=== PATIENT | male | born 1955 | race Caucasian/White ===

== ENCOUNTER 2020-06-12 09:00 | Outpatient (CLI) | payer MEDICARE, SELFPAY ==
--- NOTE | ~2020-06-12 | MR_ITS ---
EXAMINATION: MR lumbar spine wo con DATE: 06/12/2020 09:52 INDICATION: Lumbar radiculopathy. TECHNIQUE: Magnetic resonance imaging (MRI) of the lumbar spine was performed without intravenous con trast. Sequences included sagittal T2-weighted FSE, sagittal T2-weighted FS FSE, sagittal T1-weighted FSE, and axial T2-weighted FSE. COMPARISON: Lumbar spine MRI 01/03/2017 FINDINGS: There is 9 degrees levocurvature of lumbar spine. There is 3 mm retrolisthesis of L3 on L4 and 3 mm anterolisthesis of L4 on L5. Vertebral body heights are normal. There is moderately decrease d disc height at L2-L3 and mildly decreased disc height at L3-L4, L4-L5, and L5-S1. The distal spinal cord signal intensity is normal. The conus medullaris is at T12-L1. The following disc levels are sp ecifically discussed: L1-L2: The disc is bulging. There is mild bilateral facet joint osteoarthritis. There is mild bilater al neural foraminal stenosis. There is no central canal stenosis. L2-L3: The disc is bulging. There is mild bilateral facet joint osteoarthritis. There is mild bilater al neural foraminal stenosis. There is mild central canal stenosis. L3-L4: The disc is bulging and has an annular fissure. There is mild bilateral facet joint osteoarthr itis. There is moderate bilateral neural foraminal stenosis. There is mild central canal stenosis. L4-L5: The disc is bulging and has an annular fissure. There is severe bilateral facet joint osteoart hritis. There is moderate bilateral neural foraminal stenosis. There is mild central canal stenosis. L5-S1: The disc is bulging and has an annular fissure. There is mild right and moderate left facet julisa int osteoarthritis. There is mild bilateral neural foraminal stenosis. There is mild central canal st enosis. IMPRESSION: 1. Moderate lumbar spondylosis, stable from 01/03/2017. Reviewed, dictated and finalized at location B. LITY SPECIALIST
== END 2020-06-12 09:01 | disposition home or self-care (01) ==
LOC: ANHIMG 09:02
PROVIDERS: PCP Internal Medicine; Visit Provider Nurse Practitioner Family
DX: M47.26 Other spondylosis with radiculopathy, lumbar region (principal)
CPT/HCPCS: 72148

== ENCOUNTER 2020-08-14 06:33 | Outpatient (CLI) | payer MEDICARE, SELFPAY ==
--- NOTE | ~2020-08-14 | MR_ITS ---
EXAMINATION: MR cervical spine wo con EXAM DATE: 08/14/2020 07:51 INDICATION: Cervical radiculopathy. Right arm tingling. Neck pain. TECHNIQUE: Multi-sequential, multiplanar MR images of the cervical spine were obtained without contra st. Axial T2, axial T2 MERGE sequence. Sagittal T1, T2, T2 fat saturation images also obtained. Th ere is no prior study for comparison. FINDINGS: Schmorl's node at the C5 inferior endplate left posterior aspect with small fluid signal i ntensity pocket just deep to it. This is degenerative. There is mild disc disease at the C5-6 and 6-7 endplates. The vertebral body and disc heights are otherwise well maintained. The vertebral bodies a re aligned in the AP dimension. The spinal cord signal intensity and intrinsic morphology is normal. Cervicomedullary junction is normal in appearance. Paraspinal soft tissue is unremarkable. Level by level evaluation: C2-C3: There is a mild diffuse disc bulge asymmetric to the left Uncovertebral joint arthropathy: Mild to moderate left, mild right. Facet joint arthropathy: Moderate left, mild to moderate right. Neural foraminal stenosis: Moderate left. Central canal stenosis: Minimal. C3-C4: There is a minimal diffuse disc bulge. Uncovertebral joint arthropathy: Mild to moderate left, mild right. Facet joint arthropathy: Moderate left, mild to moderate right. Neural foraminal stenosis: Mild to moderate left, mild right. Central canal stenosis: Minimal. C4-C5: There is a minimal diffuse disc bulge. Uncovertebral joint arthropathy: Mild to moderate bilateral. Facet joint arthropathy: Moderate bilateral. Neural foraminal stenosis: Mild bilateral. Central canal stenosis: No stenosis. C5-C6: There is a mild diffuse disc bulge. Uncovertebral joint arthropathy: Severe right, moderate to severe left. Facet joint arthropathy: Moderate bilateral. Neural foraminal stenosis: Severe right, moderate to severe left. Central canal stenosis: Mild. C6-C7: There is a mild diffuse disc bulge asymmetric to the left Uncovertebral joint arthropathy: Moderate left, mild to moderate right. Facet joint arthropathy: Mild bilateral. Neural foraminal stenosis: Moderate left. Central canal stenosis: Mild. C7-T1: Disc does not extend beyond the endplate margin. Uncovertebral joint arthropathy: Mild to moderate bilateral. Facet joint arthropathy: Mild to moderate bilateral. Neural foraminal stenosis: No stenosis. Central canal stenosis: No stenosis. IMPRESSION: 1. Significant neural foraminal stenosis at C5-6, lesser amount at C6-7. Reviewed, dictated and finalized at location A.
== END 2020-08-14 06:34 | disposition home or self-care (01) ==
LOC: ANHIMG 06:44
PROVIDERS: PCP Internal Medicine; Visit Provider Nurse Practitioner Family
DX: M54.12 Radiculopathy, cervical region (principal)
CPT/HCPCS: 72141

== ENCOUNTER 2023-04-29 07:12 | Outpatient (CLI) | payer OTHER, SELFPAY ==
[2023-04-29 07:41] LABS: Alanine Aminotransferase 19 U/L (6-50); Albumin Level 3.9 g/dL (3.5-5.1); Alkaline Phosphatase 97 U/L (38-126); Anion Gap 7 mmol/L (8-16); Aspartate Amino Transferase 29 U/L (17-59); Bilirubin,Total 0.6 mg/dL (0.2-1.3); Blood Urea Nitrogen 17 mg/dL (9-20); Calcium 8.8 mg/dL (8.4-10.2); Carbon Dioxide 25 mmol/L (22-30); Chloride 107 mmol/L (98-107); Cholesterol 133 mg/dL (0-200); Estimated Glomerular Filt Rate 55; Glucose 103 mg/dL (65-110); HDL Direct 35 mg/dL; Potassium 4.2 mmol/L (3.4-5.0); Sodium 139 mmol/L (137-145); Triglycerides 61 mg/dL (<150)
[2023-04-29 07:52] LABS: LDL Cholesterol Direct 80 mg/dL
[2023-04-29 08:11] LABS: Prostate Specific Antigen 1.2 ng/mL (< OR = 4.0)
[2023-04-29 09:20] LABS: Vitamin D 25 Hydroxy 38.1 ng/mL
== END 2023-04-29 07:13 | disposition home or self-care (01) ==
LOC: ANHLAB 07:13
PROVIDERS: PCP Family Medicine; Visit Provider Emergency Medicine
DX: E55.9 Vitamin D deficiency, unspecified (principal); E78.5 Hyperlipidemia, unspecified; Z12.5 Encounter for screening for malignant neoplasm of prostate
CPT/HCPCS: 36415; 80053; 80061; 82306; 84153; G0103

== ENCOUNTER 2023-08-19 07:22 | Outpatient (CLI) | payer OTHER, SELFPAY ==
[2023-08-19 08:19] LABS: Alanine Aminotransferase 20 U/L (6-50); Albumin Level 4.2 g/dL (3.5-5.1); Alkaline Phosphatase 92 U/L (38-126); Anion Gap 5 mmol/L (4-12); Aspartate Amino Transferase 25 U/L (17-59); Bilirubin,Total 0.8 mg/dL (0.2-1.3); Blood Urea Nitrogen 18 mg/dL (9-20); Calcium 9.4 mg/dL (8.4-10.2); Carbon Dioxide 27 mmol/L (22-30); Chloride 104 mmol/L (98-107); Cholesterol 176 mg/dL (0-200); Estimated Glomerular Filt Rate 60; Glucose 102 mg/dL (65-110); HDL Direct 33 mg/dL; Potassium 4.5 mmol/L (3.4-5.0); Sodium 136 mmol/L (137-145); Triglycerides 125 mg/dL (<150)
[2023-08-19 08:30] LABS: LDL Cholesterol Direct 117 mg/dL
[2023-08-19 09:07] LABS: Vitamin D 25 Hydroxy 55.5 ng/mL
== END 2023-08-19 07:23 | disposition home or self-care (01) ==
PROVIDERS: PCP Emergency Medicine; Visit Provider Emergency Medicine
DX: E78.5 Hyperlipidemia, unspecified (principal); E55.9 Vitamin D deficiency, unspecified
CPT/HCPCS: 36415; 80053; 80061; 82306

== ENCOUNTER 2024-02-24 07:00 | Outpatient (CLI) | payer OTHER, SELFPAY ==
[2024-02-24 08:06] LABS: Alanine Aminotransferase 16 U/L (6-50); Albumin Level 4.1 g/dL (3.5-5.1); Alkaline Phosphatase 90 U/L (38-126); Anion Gap 6 mmol/L (4-12); Aspartate Amino Transferase 27 U/L (17-59); Bilirubin,Total 0.5 mg/dL (0.2-1.3); Blood Urea Nitrogen 23 mg/dL (9-20); Calcium 8.9 mg/dL (8.4-10.2); Carbon Dioxide 27 mmol/L (22-30); Chloride 104 mmol/L (98-107); Cholesterol 191 mg/dL (0-200); Estimated Glomerular Filt Rate 55; Glucose 97 mg/dL (65-110); HDL Direct 35 mg/dL; Potassium 4.3 mmol/L (3.4-5.0); Sodium 137 mmol/L (137-145); Triglycerides 139 mg/dL (<150)
[2024-02-24 08:17] LABS: LDL Cholesterol Direct 119 mg/dL
[2024-02-24 08:36] LABS: Prostate Specific Antigen 1.2 ng/mL (< OR = 4.0)
[2024-02-24 09:21] LABS: Vitamin D 25 Hydroxy 44.3 ng/mL
== END 2024-02-24 07:01 | disposition home or self-care (01) ==
PROVIDERS: PCP Emergency Medicine; Visit Provider Emergency Medicine
DX: E78.5 Hyperlipidemia, unspecified (principal); E55.9 Vitamin D deficiency, unspecified; Z12.5 Encounter for screening for malignant neoplasm of prostate
CPT/HCPCS: 36415; 80053; 80061; 82306; 84153; G0103

== ENCOUNTER 2024-08-20 07:18 | Outpatient (CLI) | payer OTHER, SELFPAY ==
--- OUTSIDE RECORDS SUMMARY | 2024-08-20 07:22 | XMS_ITS | CONTINUITY OF CARE DOCUMENT ---
Author Name saeid breaux Address Unknown Organization [facility] Address [address] [place] [address] Phone [phone] Care Team Providers Care Charcoal Unloader Name Role Phone Franko Walker MD Unavailable [phone] LISA COLUNGA MD Unavailable LISA COLUNGA MD Unavailable [phone] PROBLEMS Condition Status Date Provider Notes Family History of Sudden Cardiac : active ? Franko Walker MD CAD active Franko Walker MD HTN essential active Franko Walker MD Dyslipidemia active Franko Walker MD Cardiomyopathy active Franko Walker MD Tobacco abuse active Franko Walker MD Renal artery stenosis S/P b/l stents active Franko Walker MD Bradycardia active Franko Walker MD Fatigue active Franko Walker MD Claudication active Franko Walker MD ENCOUNTERS Date Type Provider Location Encounter Diag nosis - In-person encounter Office Visit Franko Walker MD [facility] BradycardiaFatigueClaudication - In-person encounter Office Visit Franko Walker MD [facility] DyslipidemiaRenal artery stenosis S/P b/l stents - In-person encounter Office Visit Franko Walker MD [place] [facility] Tobacco abuse - In-person encounter Office Visit Franko Walker MD [facility] - In-person encounter Office Visit Franko Walker MD [facility] [place] [facility] Family History of Sudden Cardiac :CADHTN essentialDyslipidemiaCardiomyopathy VITAL SIGNS Date Observation Value Provider Body Mass Index (Ratio) 26.05 kg/m2 Umang Dockery oxygen saturation, oximetry 85 % Jyoti Essie respiratory rate E&M 18 /min Jyoti blanco pulse rate 96 /min Jyoti Obdulioe kannaner blood pressure, cuff size large Ke rri Essie blood pressure, diastolic 80 mm[Hg] Ke rri Essie blood pressure, systolic 112 mm[Hg] Juanito ri Essie weight E&M 179 [lb_av] Jyoti Obdulioe kannaner height E&M 69.5 [in_i] Jyoti Josseline brunnerer Body Mass Index (Ratio) 26.75 kg/m2 Umang Dockery blood pressure, resting Yes Franko Walker MD blood pressure, diastolic 81 mm[Hg] Jonathan Wallace blood pressure, systolic 119 mm[Hg] Su Wallace oxygen saturation, oximetry 96 % Cony Wallace respiratory rate E&M 18 /min Aniket Wallace pulse rate 72 /min Cony cat weight E&M 183.8 [lb_av] Cony catherine height E&M 69.5 [in_i] Cony cat blood pressure, diastolic 92 mm[Hg] Ke rri Essie blood pressure, systolic 152 mm[Hg] Juanito ri Essie pulse rate 60 /min Jyoti Obdulioe lder oxygen saturation, oximetry 98 % Jyoti Essie respiratory rate E&M 16 /min Jyoti Belle francis Body Mass Index (Ratio) 26.34 kg/m2 Nova i Essie weight E&M 181 [lb_av] Jyoti Josseline santos Body Mass Index (Ratio) 25.91 kg/m2 Prisca mendes Holbrook blood pressure, diastolic, left arm 100 m m[Hg] Sandy Holbrook blood pressure, systolic, left arm 158 mm [Hg] Sandy Holbrook blood pressure, diastolic, right arm 102 mm[Hg] Sandy Holbrook blood pressure, systolic, right arm 154 m m[Hg] Sandy Holbrook blood pressure, diastolic 100 mm[Hg] Ky omid Holbrook blood pressure, systolic 158 mm[Hg] Ayanna bingham Holbrook pulse rate 70 /min [facility] oxygen saturation, oximetry 96 % Sandy Holbrook respiratory rate E&M 15 /min Sandy Holbrook weight E&M 178 [lb_av] Sandy Holbrook Body Mass Index (Ratio) 25.76 kg/m2 Rohini singleton Essie blood pressure, diastolic 116 mm[Hg] divya Essie blood pressure, systolic 201 mm[Hg] Juanito jhon Essie pulse rate 59 /min Jyoti Josseline santos oxygen saturation, oximetry 98 % Jyoti Essie respiratory rate E&M 18 /min Jyoti G francis weight E&M 177 [lb_av] Jyoti brunnerer height E&M 69.5 [in_i] Jyoti santos ALLERGIES No Known Drug Allergies HISTORY OF MEDICATION USE Medication Status Instructions Dates Provider Indications Com ments CYCLOBENZAPRINE HCL 10 MG ORAL TABLET completed One tablet twice daily - Jyoti Fountain DICLOFENAC SODIUM 75 MG ORAL TABLET DELAYED RELEASE completed as needed - Jyoti Fountain KLOR-CON M10 10 MEQ ORAL TABLET EXTENDED RELEASE active One tab daily Franko Walker MD LASIX 20 MG ORAL TABLET active One tab daily Franko Walker MD ASPIRIN 81 MG ORAL TABLET active ONE TAB. DAILY Sandy Holbrook LIPITOR 40 MG ORAL TABLET active take one pill a day Jyoti Fountain LISINOPRIL 20 MG ORAL TABLET active ONE TAB. DAILY Franko Walker MD COREG 3.125 MG ORAL TABLET active ONE TAB. TWICE DAILY Franko Walker MD BRILINTA 90 MG ORAL TABLET completed take one pill twice a day - Franko Walker MD SOCIAL HISTORY Date Observation Value Provider smoking, date started 1972 Augustina mehta Nahed social history reviewed E&M revi ewed - no changes required [facility] smoking/tobacco cess ation, patient education and counseling yes Jyoti Fountain alcohol use no Jyoti santos smoking, year quit 2013 Jyoti montalvo number of years as a smoker 44 a [facility] smoking history, tot al pack/day 1/2 Jyoti Fountain cigarette use yes Jyoti nunez smoking status Current every day smoker K trevor Essie social history reviewed E&M luis ewed - no changes required Franko Walker MD social history E&M Smoking Histo ry: P atient currently smokes every day. P atient has been counseled to quit. Franko Walker MD smoking/tobacco cess ation, patient education and counseling yes Cony Wallace alcohol use no Cony cat smoking, year quit 2013 Cony Wallace number of years as a smoker 40 a Cony Wallace smoking history, tot al pack/day 1/2 Cony Wallace cigarette use yes Cony catherine smoking status Current every day smoker Hang Wallace smoking/tobacco cess ation, patient education and counseling yes Darius Nahed social history E&M Smoking Histo ry: P atient currently smokes every day. P atient has been counseled to quit. Darius Dockery social history reviewed E&M revi ewed - no changes required Darius Dockery alcohol use no Jyoti santos number of years as a smoker 40 a Jyoti Fountain smoking history, tot al pack/day 1/2 Jyoti Fountain cigarette use yes Jyoti nunez smoking status Current every day smoker K trevor Fountain social history reviewed E&M revi ewed - no changes required Franko Walker MD alcohol use no Sandy Holbrook smoking/tobacco cess ation, patient education and counseling yes Sandy Holbrook smoking, year quit 2013 Sandy Dunn number of years as a smoker 41 a Sandyzachery Holbrook smoking history, tot al pack/day 1 Sandy Holbrook cigarette use yes Sandy Holbrook smoking status Former smoker Sandy Wilsonsaúl lockwood smoking/tobacco cess ation, patient education and counseling yes Mariaa Adrian social history reviewed E&M revi ewed - no changes required Mariaa Blunt alcohol use no Jyoti brunnerer smoking, year quit 2013 Jyoti montalvo number of years as a smoker 41 a Jyoti Fountain smoking history, tot al pack/day 1 Jyoti Fountain cigarette use yes Jyoti Mak elder smoking status Former smoker Jyoti Daigle nfelder FUNCTIONAL STATUS Date Observation Value Provider HRA, CV Assess/Plan, Angina (inactive) Management Plan continue current therapy Franko Walker MD HRA, CV Assess/Plan, Angina (inactive) Management Plan continue current therapy Franko Walker MD FAMILY HISTORY Family Member Condition Mother Family History of Hy pertension: Mother Family History of Ar thritis: Father Family History of Calle dden Cardiac : Father Family History of Al coholism: INSURANCE PROVIDERS Payer name Policy type / Coverage type [place] [employer] [place] [employer] Medicare [id number] ADVANCE DIRECTIVES Name Date DISCUSSED - NO DECISION MADE TREATMENT PLAN Date Name Performer Cardiology Follow up :Denies chest pain or SOB. His updated medication list for this problem includes: Lasix 20 Mg Oral Tablet (Furosemide) ..... One tab daily Aspirin 81 Mg Oral Tablet (Aspirin) ..... One tab. daily Lisinopril 20 Mg Oral Tablet (Lisinopril) ..... One tab. daily Coreg 3.125 Mg Oral Tablet (Carvedilol) ..... One tab. twice daily Darius Dockery Cardiology Follow up :His updated medication list for this problem includes: Lasix 20 Mg Oral Tablet (Furosemide) ..... One tab daily Lisinopril 20 Mg Oral Tablet (Lisinopril) ..... One tab. daily Coreg 3.125 Mg Oral Tablet (Carvedilol) ..... One tab. twice daily Orders: C omplete Echo ([id number]) Darius Dockery Cardiology Follow up :BP today: 112/80 P rior BP: 119/81 (05/03/2016) His updated medication list for this problem includes: Lasix 20 Mg Oral Tablet (Furosemide) ..... One tab daily Lisinopril 20 Mg Oral Tablet (Lisinopril) ..... One tab. daily Coreg 3.125 Mg Oral Tablet (Carvedilol) ..... One tab. twice daily Darius Dockery Cardiology Follow up:We advised him to quit smoking. Darius Dockery Cardiology Follow up :He complains of weakness in the left leg and we will obtain ANDERSON's. Darius Nahed Cardiology Follow up :He had b/l renal artery stenting in the past and we will obtain renal artery duplex. Darius Nahed Cardiology Follow up :EKG shows marked sinus bradycardia (44 bpm). The pt complains of fatigue. Will reduce Coreg to 3.125mg BID. Darius Dockery Cardiology Follow up :EKG shows marked sinus bradycardia. The pt complains of fatigue. Will reduce Coreg to 3.125mg BID. Darius Dockery Cardiology:STRONGLY ENCOURAGED TO STOP SMOKING; SMOKING CESSATION TECHNIQUES DISCUSSED. Franko Walker MD Cardiology:His updat ed medication list for this problem includes: Lipitor 40 Mg Tabs (Atorvastatin calcium) ..... Take one pill a day Franko Walker MD Cardiology:BP today: 119/81 P rior BP: 152/92 (04/30/2015) His updated medication list for this problem includes: Lasix 20 Mg Tabs (Furosemide) ..... One tab daily Aspirin 81 Mg Tabs (Aspirin) ..... One tab. daily Lisinopril 20 Mg Tabs (Lisinopril) ..... One tab. daily Coreg 12.5 Mg Tabs (Carvedilol) ..... One tab. twice daily Franko Walker MD Cardiology:His updat ed medication list for this problem includes: Lasix 20 Mg Tabs (Furosemide) ..... One tab daily Aspirin 81 Mg Tabs (Aspirin) ..... One tab. daily Lisinopril 20 Mg Tabs (Lisinopril) ..... One tab. daily Coreg 12.5 Mg Tabs (Carvedilol) ..... One tab. twice daily Franko Walker MD Cardiology:Stable. N o chest pain or SOB. Last stent was in 2013. Pt would like to stop Brilinta due to the cost. The following medications were removed from the medication list: Brilinta 90 Mg Tabs (Ticagrelor) ..... Take one pill twice a day His updated medication list for this problem includes: Aspirin 81 Mg Tabs (Aspirin) ..... One tab. daily Lisinopril 20 Mg Tabs (Lisinopril) ..... One tab. daily Coreg 12.5 Mg Tabs (Carvedilol) ..... One tab. twice daily Franko Walker MD Cardiology Follow up :No SOB or CP. He would like to participate in the Compass study. Franko Walker MD Cardiology Follow up :EF improve d to 65%. Franko Walker MD Cardiology Follow up :BP today: 152/92 P rior BP: 158/100 (03/28/2014) His updated medication list for this problem includes: Lasix 20 Mg Tabs (Furosemide) ..... One tab daily Aspirin 81 Mg Tabs (Aspirin) ..... One tab. daily Lisinopril 20 Mg Tabs (Lisinopril) ..... One tab. daily Coreg 12.5 Mg Tabs (Carvedilol) ..... One tab. twice daily Franko Walker MD Cardiology Follow up :His updated medication list for this problem includes: Lipitor 40 Mg Tabs (Atorvastatin calcium) ..... Take one pill a day Franko Walker MD Date Name Arterial Duplex Bi-L ower EX Renal Artery Duplex Complete Echo Complete Echo LIPID PANEL Cardiac Cath - Left - GC HISTORY OF PROCEDURES Procedure Date Procedure Name Provider Procedure Notes S tatus SNOMED-CT: 071334294 Smoking Cessation Counseling Franko Walker MD completed EKG Franko Walker MD completed SNOMED-CT: 897258631 365283 Current Medications Documented Franko Walker MD completed SNOMED-CT: 846013101 Smoking Cessation Counseling Franko Walker MD completed EKG Franko Walker MD completed SNOMED-CT: 279599622 738810 Current Medications Documented Franko Walker MD completed SNOMED-CT: 952810753 Smoking Cessation Counseling Franko Walker MD completed EKG Franko Walker MD completed SNOMED-CT: 475154601 591313 Current Medications Documented Franko Walker MD completed
--- OUTSIDE RECORDS SUMMARY | 2024-08-20 07:22 | XMS_ITS | Clinical Summary ---
Author Organization [facility] Address [address] [place] [address] Care Team Providers Care Turner And Former Automatic Name Role Phone Juan José Diez MD Primary Care Provider [phone] Source Comments [facility],non-owned Affiliates and Associated Physician Practices is amultiple site organization consisting of ambulatory clinics and hospital sitesin [place], [place], [place] and [place]. This disclosure is being madepursuant to the Care Everywhere program and may not contain all information available regarding this patient. Last updated 18.[facility] Allergies No known active allergies Medications * Be aware that medications may not be up to date on this document. Alwaysverify current medications with the patient. Medication Sig Dispensed Refills Start Date End Date Status diclofenac sodium EC (VOLTAREN) 75 MG tablet Take 1 Tab by mouth 2 times daily 60 Tab 11 04/02/2015 Active hydrocodone-acetaminop hen (NORCO) 5-325 MG tablet Take 1 Tab by mouth every 8 hours as needed for Pain Active furosemide (LASIX) 20 MG tablet Take 20 mg by mouth once daily Active lisinopril (PRINIVIL; ZESTRIL) 20 MG tablet Take 20 mg by mouth once daily Active atorvastatin (LIPITOR) 40 MG tablet Take 40 mg by mouth at bedtime Active ticagrelor (BRILINTA) 90 MG tablet Take 90 mg by mouth 2 times daily Active aspirin (ASPIRIN) 81 MG tablet Take 81 mg by mouth once daily Active potassium chloride (KLOR-CON 10) 10 MEQ tablet Take 10 mEq by mouth once daily Active carvedilol (COREG) 12.5 MG tablet Take 12.5 mg by mouth 2 times daily with morning and evening meal Active Social History Tobacco Use Types Packs/Day Years Used Date Smoking Tobacco: Every Day Cigarettes Smokeless Tobacco: Never Alcohol Use Standard Drinks/Week Comments No 0 (1 standard drink = 0.6 oz pur e alcohol) Sex and Gender Information Value Date Recorded Sex Assigned at Not on file Gender Identity Not on file Sexual Orientation Not on file Last Filed Vital Signs Vital Sign Reading Time Taken Comments Blood Pressure - - Pulse - - Temperature - - Respiratory Rate - - Oxygen Saturation - - Inhaled Oxygen Concentration - - Weight 80.7 kg (178 lb) 04/02/2015 12:46 PM PRECISION LENS CENTERER AND EDGER Height 152.4 cm (5') 04/02/2015 12:46 PM PRECISION LENS CENTERER AND EDGER Body Mass Index 34.76 04/02/2015 12:46 PM PRECISION LENS CENTERER AND EDGER Plan of Treatment Health Maintenance Due Date Last Done Comments COLOGUARD (AGES 45-75) - COL ON CA SCREENING 1954 COLON MONITORING 1954 COLONOSCOPY - COLON CA SCREENING 1954 CT COLONOGRAPHY - COLON CA SCREENING 1954 Colorectal Cancer Screening 1954 FIT - COLON CA SCREENING 1954 FLEX SIG - COLON CA SCREENING 1954 HEPATITIS C SCREENING 08/04/1972 DTAP/TDAP/TD VACCINES (1 - Tdap) 1973 PNEUMOCOCCAL VACCINE 50+ (1 of 1 - PCV) 2004 ZOSTER VACCINE (1 of 2) 2004 AAA SCREENING 08/10/2019 COVID-19 VACCINE (1 - 2023-2 5 season) 2024 INFLUENZA VACCINE (#1) 2024 DEPRESSION SCREENING 05/23/2024 Respiratory Syncytial Virus (RSV) Vaccine Pt: or over 60 yrs (1 - 1-dose 75+ series) 2029 HEPATITIS B VACCINE Aged Out No longe r eligible based on patient's age to complete this topic HIB VACCINE Aged Out No longer eligi ble based on patient's age to complete this topic HPV VACCINE Aged Out No longer eligi ble based on patient's age to complete this topic MENINGOCOCCAL (Group B) VACC INE SHARED DECISION-MAKING Aged Out No longer eligibl e based on patient's age to complete this topic MENINGOCOCCAL GROUPS A/C/Y/W VACCINE Aged Out No longer eligible b ased on patient's age to complete this topic Care Teams Turner And Former Automatic Relationship Specialty Start Date End Date Juan José Diez MD [address] [facility] [address] [place] [address] PCP - General Internal Medicine 02/28/15
[2024-08-20 09:20] LABS: Alanine Aminotransferase 21 U/L (6-50); Alkaline Phosphatase 100 U/L (38-126); Anion Gap 9 mmol/L (4-12); Aspartate Amino Transferase 27 U/L (17-59); Bilirubin,Total 0.6 mg/dL (0.2-1.3); Blood Urea Nitrogen 20 mg/dL (9-20); Carbon Dioxide 25 mmol/L (22-30); Chloride 106 mmol/L (98-107); Cholesterol 157 mg/dL (0-200); Estimated Glomerular Filt Rate 56; Glucose 120 mg/dL (65-110); HDL Direct 33 mg/dL; Potassium 4.5 mmol/L (3.4-5.0); Sodium 140 mmol/L (137-145); Triglycerides 167 mg/dL (<150)
[2024-08-20 09:31] LABS: LDL Cholesterol Direct 84 mg/dL
[2024-08-20 10:36] LABS: Vitamin D 25 Hydroxy 39.3 ng/mL
== END 2024-08-20 07:19 | disposition home or self-care (01) ==
LOC: ANHLAB 07:20
PROVIDERS: PCP Emergency Medicine; Visit Provider Emergency Medicine
DX: E55.9 Vitamin D deficiency, unspecified (principal); E78.5 Hyperlipidemia, unspecified
CPT/HCPCS: 36415; 80053; 80061; 82306

== ENCOUNTER 2024-08-21 07:01 | Outpatient (CLI) | payer OTHER, SELFPAY ==
--- OUTSIDE RECORDS SUMMARY | 2024-08-21 07:04 | XMS_ITS | Clinical Summary ---
Author Organization [facility] Address [address] [place] [address] Care Team Providers Care Rn Labor And Delivery Name Role Phone Juan José Diez MD Primary Care Provider [phone] Source Comments [facility],non-owned Affiliates and Associated Physician Practices is amultiple site organization consisting of ambulatory clinics and hospital sitesin [place], [place], [place] and [place]. This disclosure is being madepursuant to the Care Everywhere program and may not contain all information available regarding this patient. Last updated 18.[facility] Allergies No known active allergies Medications * [...] 80.7 kg (178 lb) 04/02/2015 12:46 PM MANAGER CONTENT Height 152.4 cm (5') 04/02/2015 12:46 PM MANAGER CONTENT Body Mass Index 34.76 04/02/2015 12:46 PM MANAGER CONTENT Plan of Treatment Health Maintenance Due Date [...] age to complete this topic Care Teams Rn Labor And Delivery Relationship Specialty Start Date End Date Juan José Diez MD [address] [facility] [address] [place] [address] PCP - General Internal Medicine 02/28/15
--- OUTSIDE RECORDS SUMMARY | 2024-08-21 07:04 | XMS_ITS | CONTINUITY OF CARE DOCUMENT ---
Author Name saeid breaux Address Unknown Organization [facility] Address [address] [place] [address] Phone [phone] Care Team Providers Care Boilers Inspector Name Role Phone Franko Walker MD Unavailable [phone] LISA COLUNGA MD Unavailable [phone] LISA COLUNGA MD Unavailable PROBLEMS Condition Status Date Provider Notes Family [...] In-person encounter Office Visit Franko Walker MD [facility] BradycardiaFatigueClaudication - In-person encounter Office Visit Franko Walker MD [facility] DyslipidemiaRenal artery stenosis S/P b/l stents - In-person encounter Office Visit Franko Walker MD [facility] Tobacco abuse - In-person encounter Office Visit Franko Walker MD [facility] - In-person encounter Office Visit Franko Walker MD [facility] Family History of Sudden Cardiac :CADHTN [...] Sandy Holbrook blood pressure, diastolic 100 mm[Hg] Vt omid Holbrook blood pressure, systolic 158 mm[Hg] Ayanna bingham Holbrook pulse rate 70 /min Sandy [facility] oxygen saturation, oximetry 96 % Sandy Holbrook [...] Provider smoking, date started 1972 Augustina mehta [facility] social history reviewed E&M revi ewed - no changes required [facility] smoking/tobacco cess ation, patient education and counseling yes Jyoti Fountain alcohol use no Jyoti santos smoking, year quit 2013 Jyoti montalvo number of years as a smoker 44 a [facility] smoking history, tot al pack/day 1/2 [...] revi ewed - no changes required Darius Dcokery alcohol use no Jyoti santos number of [...] required Mariaa Blunt alcohol use no Jyoti burnnerer smoking, year quit 2013 Jyoti montalvo number [...] Payer name Policy type / Coverage type [place] [employer] [place] [employer] Medicare [id number] ADVANCE DIRECTIVES Name Date DISCUSSED - NO [...] tab. twice daily Orders: C omplete Echo ([id number]) Darius Dockery Cardiology Follow up :BP today: [...] Name Provider Procedure Notes S tatus SNOMED-CT: [id number] Smoking Cessation Counseling Franko Walker MD completed EKG Franko Walker MD completed SNOMED-CT: [id number] Current Medications Documented Franko Walker MD completed SNOMED-CT: [id number] Smoking Cessation Counseling Franko Walker MD completed EKG Franko Walker MD completed SNOMED-CT: [id number] 867951 Current Medications Documented Franko Walker MD completed SNOMED-CT: 894726028 Smoking Cessation Counseling Franko Walker MD completed EKG Franko Walker MD completed SNOMED-CT: [id number] 297740 Current Medications Documented Franko Walker MD completed
[2024-08-21 09:59] LABS: Hemoglobin A1C 5.4 % (<5.7)
== END 2024-08-21 07:02 | disposition home or self-care (01) ==
PROVIDERS: PCP Emergency Medicine; Visit Provider Emergency Medicine
DX: R73.09 Other abnormal glucose (principal)
CPT/HCPCS: 36415; 83036

== ENCOUNTER 2025-02-13 07:02 | Outpatient (CLI) | payer OTHER, SELFPAY ==
[2025-02-13 08:18] LABS: Alanine Aminotransferase 17 U/L (6-50); Albumin Level 3.8 g/dL (3.5-5.1); Alkaline Phosphatase 101 U/L (38-126); Anion Gap 4 mmol/L (4-12); Aspartate Amino Transferase 27 U/L (17-59); Bilirubin,Total 0.6 mg/dL (0.2-1.3); Blood Urea Nitrogen 15 mg/dL (9-20); Calcium 8.5 mg/dL (8.4-10.2); Carbon Dioxide 27 mmol/L (22-30); Chloride 105 mmol/L (98-107); Cholesterol 175 mg/dL (0-200); Estimated Glomerular Filt Rate 56; Glucose 96 mg/dL (65-110); HDL Direct 28 mg/dL; Potassium 4.2 mmol/L (3.4-5.0); Sodium 136 mmol/L (137-145); Total Protein 7.1 g/dL (6.3-8.2); Triglycerides 115 mg/dL (<150)
== END 2025-02-13 07:03 | disposition home or self-care (01) ==
PROVIDERS: PCP Emergency Medicine; Visit Provider Emergency Medicine
DX: E55.9 Vitamin D deficiency, unspecified (principal); E78.5 Hyperlipidemia, unspecified
CPT/HCPCS: 36415; 80053; 80061; 82306